=== PATIENT | female | born 1945 | race Caucasian/White ===

== ENCOUNTER 2024-07-25 21:45 | Emergency (ER) | payer MEDICARE ==
[~2024-07-25] VITALS: Ht 167.6 cm; Wt 98.0 kg
[2024-07-26] MEDS ORDERED: FentaNYL Citrate 50 MCG/ML 2 ML Injection IV ONE (00:20)
[2024-07-26] MEDS ORDERED: FentaNYL Citrate 50 MCG/ML 2 ML Injection ONE (00:20)
[2024-07-26] MEDS ORDERED: Ondansetron HCl 2 MG / ML 2ML Vial IV ONE (00:20)
[2024-07-26] MEDS ORDERED: Ondansetron HCl 2 MG / ML 2ML Vial ONE (00:20)
[2024-07-26] MEDS ORDERED: RX Prepack 6 Tabs Oxycodone 5mg UD ONE (01:15)
[2024-07-26] MEDS ORDERED: OxyCODONE 5 mg/Acetamin 325 mg TABLET PO ONE (01:15)
== END 2024-07-26 01:47 | disposition home or self-care (01) ==
LOC: ER 21:45
DX: S42.202A Unspecified fracture of upper end of left humerus, initial encounter for closed fracture (principal); X58.XXXA Exposure to other specified factors, initial encounter
CPT/HCPCS: 73030; 73070; 96374; 96375; 99283-25; A9270; J2405; J3010